=== PATIENT | female | born 2000 | race Caucasian/White ===

== ENCOUNTER 2022-10-12 07:58 | Outpatient (REF) | payer OTHER, SELFPAY ==
[2022-10-12 08:24] LABS: MANUAL DIFF FLAG NO
[2022-10-12 08:55] LABS: Basophils Percent Auto 0.6 % (0-2); Eosinophils Absolute Auto 0.2 X10*3/uL (0.0-0.4); Eosinophils Percent Auto 2.8 % (0-4); Hematocrit 35.6 % (37.0-47.0); Imm Gran Abs Auto 0.02 X10*3/uL (0.00-0.03); Imm Gran Pct Auto 0.3 % (0.0-0.4); Lymphocytes Absolute Auto 2.8 X10*3/uL (1.2-4.9); Lymphocytes Percent Auto 42.1 % (20-40); Mean Corpuscular HGB Conc 33.7 g/dl (31.0-35.0); Mean Corpuscular Hemoglobin 30.2 pg (27.0-33.0); Mean Corpuscular Volume 89.4 fL (80.0-98.0); Mean Platelet Volume 9.8 fL (9.4-12.3); Monocytes Absolute Auto 0.6 X10*3/uL (0.1-1.2); Monocytes Percent Auto 8.9 % (2-11); Neutrophils Absolute Auto 3.1 x10*3/uL (2.0-8.3); Neutrophils Percent Auto 45.3 % (45-73); Platelet Count 290 X10*3/uL (160-400); Red Blood Count 3.98 X10*6/uL (4.20-5.50); Red Cell Distribution Width 12.1 % (11.0-16.0); White Blood Count 6.8 X10*3/uL (4.8-10.8)
[2022-10-12 09:38] LABS: Alanine Aminotransferase 11 U/L (0-31); Albumin Level 4.4 g/dL (3.5-5.0); Alkaline Phosphatase 42 U/L (39-117); Anion Gap 10 (12-20); Aspartate Amino Transferase 17 U/L (5-31); Blood Urea Nitrogen 8 mg/dL (9-16); Calcium 9.3 mg/dL (8.4-10.2); Carbon Dioxide 26 mmol/L (22-29); Chloride 109 mmol/L (96-108); Estimated Glomerular Filt Rate > 60; Glucose Random 101 mg/dL (60-115); Potassium 4.6 mmol/L (3.3-5.1); Sodium 140 mmol/L (135-145); Total Protein 6.8 g/dL (6.5-8.0)
[2022-10-12 10:14] LABS: Folate 11.7 ng/mL (> or = 4.0); Free T4 (Free Thyroxine) 0.94 ng/dL (0.71-1.85); Thyroid Stimulating Hormone 2.74 uIU/mL (0.32-4.0); Vitamin B12 359 pg/mL (200-900); Vitamin D 25-OH Total 17.8 ng/mL (>30)
[2022-10-14 00:49] LABS: Triiodothyronine T3 Free 4.2 pg/mL (3.0-4.7)
== END 2022-10-12 07:59 | disposition home or self-care (01) ==
LOC: HO.LAB 07:58
PROVIDERS: PCP Pediatrics; Visit Provider Nurse Practitioner Family
DX: F41.1 Generalized anxiety disorder (principal); F33.1 Major depressive disorder, recurrent, moderate; F45.22 Body dysmorphic disorder; F50.9 Eating disorder, unspecified
CPT/HCPCS: 36415; 80053; 82306; 82607; 82746; 84439; 84443; 84481; 85025

== ENCOUNTER 2024-03-14 12:42 | Outpatient (AMB) | payer OTHER, SELFPAY ==
--- NOTE | 2024-03-14 12:44 | MHC.OFFWIV ---
Intake Vital Signs 03/14/24 12:46 Height 5 ft 3 in Weight 181 lb BMI 32.1 BP 120/90 H Blood Pressure Location Rt brachial Position Sitting Pulse 86 Pulse Source Pulse Oximeter Pulse Oximetry (%) 96 Oxygen Delivery Method Room Air Intake Visit Reasons: [employer] Rt wrist pain Intake Note: Patient here for right wrist pain that has been bothersome for about 3 weeks. Patient Tobacco Use Status: Never used Tobacco Allergies No Known Allergies Allergy (Verified 03/14/24 12:47) Do you need a note to return to daycare/school/sports/work: No HPI [employer] Rt wrist pain HPI Details This note is constructed using voice recognition software. While every effort has been made to ensure accuracy, social security assessor errors may have been included. The patient is a 23 year old female who presents to the clinic today with right wrist and forearm pain intermittently for the past 3 weeks. 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 She denies any recent or distant injury to the area or surgery to the area. She has tried an immobilizer wrist brace, which has helped some, and tried on ibuprofen which seemed to have helped some. She has also been doing some stretching which seems to also help her pain. She denies redness, warmth, swelling to the area. [facility] Social History Patient Tobacco Use Status: Never used Tobacco Review of Systems Const All systems reviewed & are unremarkable except as noted in HPI and below Physical Exam Vital Signs: Last Vital Signs Pulse 86 03/14/24 12:46 BP 120/90 H 03/14/24 12:46 Pulse Ox 96 03/14/24 12:46 Oxygen Delivery Method Room Air 03/14/24 12:46 BMI result Body Mass Index 32.1 Const General: cooperative, healthy appearing, comfortable, no acute distress and alert Orientation/consciousness: patient oriented x3 Limitations: no limitations Resp Effort & Inspection: normal respiratory effort and able to speak in complete sentences Skin General skin exam: no rashes or lesions noted, elasticity normal and turgor normal Neuro General: patient oriented x3 Extrem Other: Pain and forearm on extension of right wrist. Full range of motion of wrist, elbow, shoulder. No areas tender to palpation. No ecchymosis, edema, erythema. Distal neurovascular exam intact. General: Yes normal to inspection, Yes full ROM, Yes capillary refill normal and Yes normal exam except as noted Psych Appearance: grossly normal Mental Status: mental status grossly normal Speech and movement: Normal speech and movement present Affect: normal affect Assessment & Plan Assessment & Plan (1) Tendinitis: Code(s): M77.9 - Enthesopathy, unspecified Plan: Advised NSAIDs, warm compresses, compression, rest. May be developing lateral epicondylitis, which we would advise similar treatment plan 4. Deferred imaging at this time due to lack of specific injury. Advised patient to obtain primary care provider and follow up as needed with worsening or failure to resolve. Plan See above for full details and plan. Coding Level of Care Code New Pt Level 3 (50961) Diagnoses Tendinitis M77.9
[2024-03-14 12:46] VITALS: BP 120/90; PULSE 86; O2SAT 96; BMI 32.1
== END 2024-03-14 13:31 | disposition home or self-care (01) ==
PROVIDERS: Visit Provider Registered Nurse
DX: M77.9 Enthesopathy, unspecified (principal)

== ENCOUNTER → 2024-03-14 12:42 | Outpatient (BNVA) | payer OTHER, SELFPAY | PROVIDERS: Visit Provider Registered Nurse ==